=== PATIENT | female | born 1995 | race Caucasian/White ===

== ENCOUNTER 2022-01-27 15:31 | Inpatient (IN) | payer BC, SELFPAY ==
[2022-01-27] VITALS (73 sets, daily range): BP systolic 102–141; BP diastolic 59–98; PULSE 56–104; TEMP 36.2; O2SAT 97–100; BMI 34.6
[2022-01-27 16:22] LABS: Basophils Percent Auto 0.3 % (0.2-1.2); Eosinophils Absolute Auto 0.1 K/mm3 (0-0.3); Eosinophils Percent Auto 0.7 % (0-4.4); Hematocrit 34.7 % (37.0-47.0); Hemoglobin 10.9 g/dL (12.0-15.0); Immature Granulocyte Absolute 0.08 K/mm3 (0.00-0.031); Immature Granulocyte Percent A 0.8 % (0-0.5); Lymphocytes Absolute Auto 1.13 K/mm3 (0.9-3.2); Lymphocytes Percent Auto 10.7 % (18.3-44.2); Mean Corpuscular HGB Conc 31.4 g/dl (32-36); Mean Corpuscular Hemoglobin 26.7 pg (26-34); Monocytes Absolute Auto 0.6 K/mm3 (0.1-0.6); Monocytes Percent Auto 5.6 % (2.6-8.5); Neutrophils Absolute Auto 8.6 K/mm3 (1.3-6.7); Neutrophils Percent Auto 81.9 % (45.5-73.1); Platelet Count Result 260 k/mm3 (150-375); Red Blood Count 4.08 M/mm3 (4.2-5.4); Red Cell Distribution Width 13.7 % (11.5-14.5); White Blood Count 10.5 K/mm3 (4.5-10.0)
[2022-01-27 16:32] LABS: Alanine Aminotransferase 12 U/L (6-35); Albumin Level 3.5 g/dL (3.5-5.1); Alkaline Phosphatase 194 U/L (38-126); Anion Gap 9 mmol/L (8-16); Aspartate Amino Transferase 20 U/L (14-36); Bilirubin,Total 0.3 mg/dL (0.2-1.3); Blood Urea Nitrogen 8 mg/dL (7-17); Calcium 9.2 mg/dL (8.4-10.2); Carbon Dioxide 20 mmol/L (22-30); Chloride 102 mmol/L (98-107); Estimated Glomerular Filt Rate > 60; Glucose 119 mg/dL (65-110); Potassium 3.5 mmol/L (3.4-5.0); Sodium 131 mmol/L (137-145); Uric Acid 4.3 mg/dL (2.5-7.5)
[2022-01-27] MEDS: LACTATED RINGERS 1,000 ML 125 ML IV CONT ×3 (16:42→21:44)
[2022-01-27] MEDS: OXYTOCIN 30 UNITS/NS 500 ML 30 UNITS/500 ML BAG IV CONT (16:43)
--- NOTE | 2022-01-27 16:45 | LDADM ---
This patient, Katarzyna Valencia, was admitted to Labor/Delivery/Recovery 108 on 01/27/22 at 15:31. Plans for labor, pain management and were discussed with patient. Patient/family oriented to hospital policies and general routines including ID bracelet, bed and alarms, visiting hours, pain management, procedures, bathroom and other care routines, personal items, smoking policy, room service/diet and guest tray routines, infant security routines, and visiting hours. Patient/Family are encouraged to report perceived risks to care and to ask questions if they do not understand what they are told or what they should do. See OBIX for further documentation.
--- NOTE | 2022-01-27 16:46 | WPDANESEPP ---
Anes - Eval Pre Procedure Procedure: labor epidural Date/Time: 01/27/22 16:46 Surgeon: elio Pre Op Diagnosis: iol Patient Data Age: 26 Gender: F Height: Weight: Allergies Allergy/AdvReac Type Severity Reaction Status Date / Time No Known Allergies Allergy Verified 01/27/22 11:39 Home Medications Medication Instructions Recorded Confirmed Type prenat.vits,jaye,vde-qjrx-iottm 1 tablet PO DAILY 07/08/21 History Laboratory Tests 01/27/22 01/27/22 01/27/22 16:16 16:16 16:16 WBC 10.5 K/mm3 H K/mm3 (4.5-10.0) RBC 4.08 M/mm3 L M/mm3 (4.2-5.4) Hgb 10.9 g/dL L g/dL (12.0-15.0) Hct 34.7 % L % (37.0-47.0) MCV 85.0 fl fl (80-100) MCH 26.7 pg pg (26-34) MCHC 31.4 g/dl L g/dl (32-36) RDW 13.7 % % (11.5-14.5) Plt Count 260 k/mm3 k/mm3 (150-375) MPV 10.0 fl fl (7.4-10.4) Immature Gran % (Auto) 0.8 % H % (0-0.5) Neut % (Auto) 81.9 % H % (45.5-73.1) Lymph % (Auto) 10.7 % L % (18.3-44.2) [place] % (Auto) 5.6 % % (2.6-8.5) Eos % (Auto) 0.7 % % (0-4.4) Baso % (Auto) 0.3 % % (0.2-1.2) Lymph # (Auto) 1.13 K/mm3 K/mm3 (0.9-3.2) [place] # (Auto) 0.6 K/mm3 K/mm3 (0.1-0.6) Eos # (Auto) 0.1 K/mm3 K/mm3 (0-0.3) Baso # (Auto) 0.0 K/mm3 K/mm3 (0.0-0.1) Abs Immat Gran (auto) 0.08 K/mm3 H K/mm3 (0.00-0.031) Absolute Neuts (auto) 8.6 K/mm3 H K/mm3 (1.3-6.7) Absolute Nucleated RBC 0.0 K/mm3 K/mm3 (0.0-0.012) Nucleated RBC % 0.0 % % (0.0-0.2) Sodium 131 mmol/L L mmol/L (137-145) Potassium 3.5 mmol/L mmol/L (3.4-5.0) Chloride 102 mmol/L mmol/L (98-107) Carbon Dioxide 20 mmol/L L mmol/L (22-30) Anion Gap 9 mmol/L mmol/L (8-16) BUN 8 mg/dL mg/dL (7-17) Creatinine 0.60 mg/dL L mg/dL (0.7-1.0) Estim Creat Clear Calc Not Reportable Estimated GFR > 60 (59 - ) Glucose 119 mg/dL H mg/dL (65-110) Uric Acid 4.3 mg/dL mg/dL (2.5-7.5) Calcium 9.2 mg/dL mg/dL (8.4-10.2) Total Bilirubin 0.3 mg/dL mg/dL (0.2-1.3) AST 20 U/L U/L (14-36) ALT 12 U/L U/L (6-35) Alkaline Phosphatase 194 U/L H U/L (38-126) Total Protein 7.0 g/dL g/dL (6.3-8.2) Albumin 3.5 g/dL g/dL (3.5-5.1) RPR Pending Patient hx anesthesia problems: none Family hx anesthesia problems: none Results Review: All pre-operative results and documents have been reviewed as part of the pre-operative evaluation. [facility] Past Medical History Medical History Acid reflux Anxiety Headache Migraine TIA (transient ischemic attack) 2014 Surgical History Surgical History [place] teeth removed 2013 Family History Family History Sibling Heart disease Social History Social History Smoking status: Never smoker Exam Day of Procedure 01/27/22 16:46
--- NOTE | 2022-01-27 19:27 | PM.IMHP ---
H&P: HPI History of Present Illness Date/Time: 01/27/22 19:27 Chief Complaint: Patient is a 26yo LMP 04/22/21 currently 40w gestation with DARI 01/27/22 who presented to L&D for induction of labor for elevated blood pressure. Patient is dated by LMP consistent with US on 07/09/21 at 10w gestation. Patient was seen in office for a routine visit where first documented elevated blood pressure was noted. Decision was made to proceed with induction of labor. Patient reports occasional contractions. Denies any vaginal bleeding or leakage of fluid. Reports good movement. Review of Systems Review of Systems: All systems reviewed & are unremarkable except as noted in HPI and below Constitutional: Constitutional: Reports as per HPI and Reports no additional constitutional complaints Eyes: Eyes: Reports as per HPI and Reports no additional eye complaints ENT: Reports system reviewed and no additional complaints, except as documented and Reports as per HPI Cardiovascular: Cardiovascular: Reports as per HPI and Reports no additional cardiovascular complaints Respiratory: Respiratory: Reports as per HPI and Reports no additional respiratory complaints Gastrointestinal: Gastrointestinal: Reports as per HPI and Reports no additional gastrointestinal complaints Genitourinary: Genitourinary: Reports no additional female genitourinary complaints and Reports as per HPI Musculoskeletal: Musculoskeletal: Reports no additional musculoskeletal complaints and Reports as per HPI Integumentary/Breasts: Skin/Breast: Reports system reviewed and no additional complaints, except as docu and Reports as per HPI Neurologic: Reports system reviewed and no additional complaints, except as documented and Reports as per HPI Psychiatric: Psychiatric: Reports no additional psychiatric complaints and Reports as per HPI Endocrine: Endocrine: Reports no additional endocrine complaints and Reports as per HPI Hematologic/Lymphatic: Hematologic/Lymphatic: Reports no additional hematologic/lymphatic complaints and Reports as per HPI Allergic/Immunologic: Allergic/Immunologic: Reports no additional allergic/immunologic complaints and Reports as per HPI PMF Past Medical History Medical History Acid reflux Anxiety Headache Migraine TIA (transient ischemic attack) 2014 Surgical History Surgical History [place] teeth removed 2014 Family History Family History Sibling Heart disease Social History Social History Smoking status: Never smoker Substance use: never Spiritual care concerns: No Meds Home Medications and Allergies Home Medications Medication Instructions Recorded Confirmed Type prenat.vits,jaye,rlk-qmve-dugoq 1 tablet PO DAILY 07/08/21 01/27/22 History Allergies Allergy/AdvReac Type Severity Reaction Status Date / Time No Known Allergies Allergy Verified 01/27/22 11:39 Vital Signs Vital Signs - 24 hr 01/27/22 16:44 01/27/22 16:45 01/27/22 17:00 Pulse Rate 74 80 Blood Pressure 120/78 110/73 Oxygen Delivery Room Air 01/27/22 17:30 01/27/22 18:01 01/27/22 18:30 Pulse Rate 75 66 64 Blood Pressure 129/88 122/84 126/75 Oxygen Delivery 01/27/22 19:00 Pulse Rate 71 Blood Pressure 138/72 Oxygen Delivery Exam Const: General: cooperative, healthy appearing, comfortable and no acute distress HENMT: Head: normal to inspection Ears: hearing grossly normal bilaterally Eyes: General: appearance normal, both eyes and all related structures Neck: Neck: normal visual inspection Resp: Effort & Inspection: normal respiratory effort Auscultation: clear to auscultation bilaterally Cardio: Rate: regular rate Rhythm: regular rhythm GI: Inspection: non-distended
--- NOTE | 2022-01-27 19:41 | WPDHPUPDATE1 ---
History and Physical Update Update Date/Time: 01/27/22 19:41 History and Physical has been reviewed, including an updated exam of the patient. There are NO changes in the patient's condition. Risks, benefits, and alternatives have been discussed and questions answered. Patient agrees to proceed with procedure.
[2022-01-28] VITALS (262 sets, daily range): BP systolic 96–146; BP diastolic 48–100; PULSE 53–132; RESP 11–20; TEMP 36.1–37.1; O2SAT 94–100
--- NOTE | 2022-01-28 09:11 | P.PNOB_ITS ---
Pain Control Date/time seen: 01/28/22 09:11 Comments: Patient doing well. Comfortable s/p epidural. SVE 8.5/90/-1 (per RN). EFM currently category I, however, periods of category II noted previously. [place] shows contractions q3 mins. Continuous EFM and toco. Continue pitocin.
[2022-01-28] MEDS: LACTATED RINGERS 1,000 ML 125 ML IV CONT (09:56)
--- NOTE | 2022-01-28 11:06 | PM.OBPNLAB ---
Pain Control Date/time seen: 01/28/22 11:06 Comments: Patient doing well. SVE /-2 (my exam). Minimal caput also noted. Review of chart shows pt was approx. 7cm dilated around midnight. Therefore, no significant cervical change in several hours. EFM category I at this time. [place] shows contractions q3-4 mins. Will continue induction with pitocin for an additional two hours and reevaluate. If no further progress, will likely recommend section. Patient and made aware of situation and agree with plan.
[2022-01-28 11:29] LABS: Rapid Plasma Reagin Non-Reactive (NonReactive)
--- NOTE | 2022-01-28 13:18 | PM.OBPNLAB ---
Pain Control Date/time seen: 01/28/22 13:18 Comments: Cervix reevaluated. SVE essentially unchanged. Few occ decelerations noted on EFM, however, adequate recovery. Situation discussed with patient. Recommendation made to proceed with section for arrest of dilation. Risks and benefits of section discussed with patient. Patient implied an understanding and agrees with plan. Pitocin discontinued. Anesthesia notified. All questions and concerns addressed.
[2022-01-28] MEDS: ceFAZolin 2 GM/D5W 50 ML 2 GM/50 ML BAG IVPB (13:27)
[2022-01-28] MEDS: KETOROLAC 30 MG/ML VIAL (*BKC) 15 MG IV PUSH (14:50)
--- NOTE | 2022-01-28 15:04 | W.PM.PROC2 ---
Procedure Note - Detailed Date of Procedure 01/28/22 Pre-op Diagnosis IUP at 40w gestation Arrest of dilation Post-op Diagnosis Same Procedure Performed Primary low transverse section via Pfannenstiel Surgeon Rain Cline MD Supervisor [place] Anesthesia Epidural Findings Live female in cephalic presentation, apgars 9 and 9, weighing 7 lbs. 11 oz., nuchal cord x 1, clear amniotic fluid, normal appearing uterus, ovaries, and fallopian tubes bilaterally Description of Procedure The patient was taken to the operating room, where she was transferred to the operating room table. The patient was placed in dorsal supine position with a leftward tilt. She was prepped and draped in the usual sterile fashion. Epidural anesthesia was tested and found to be adequate. A Pfannenstiel skin incision was made with a scalpel and carried through to underlying layer of fascia with the Bovie. The fascia was incised in the midline and the incision was extended laterally with the use of forceps and Claros scissors. The inferior aspect of the fascial incision was grasped with David clamps, elevated, and the underlying rectus muscle were dissected off with Claros scissors. Attention was then turned to the superior aspect of the fascial incision, which in a similar manner, was grasped with David clamps, elevated, and the underlying rectus muscles were also dissected off with Claros scissors. The rectus muscles were in the midline and the peritoneal cavity was entered bluntly. This incision was extended superiorly and inferiorly with good visualization of the bladder and care was taken to avoid blood vessels. A bladder blade was inserted. The vesicouterine peritoneum was identified and incised sharply with Metzenbaum scissors. This incision was extended laterally with Metzenbaum scissors and a bladder flap was created digitally. The bladder blade was replaced. A low-transverse uterine incision was made with a scalpel. This incision was extended laterally with bandage scissors. Clear amniotic fluid was noted. The infant's head was grasped and gently guided to the level of the uterine incision. The infant's head was delivered easily and atraumatically without difficulty. A nuchal cord x 1 was noted and reduced. The neck, shoulders, and rest of body with delivered easily with gentle fundal pressure. The 's nose and mouth were suctioned with bulb suction. The was crying spontaneously. The cord was clamped and cut and the infant was handed off to awaiting nursing staff. A segment of cord was collected for cord gases. Cord blood was also collected. The placenta was then delivered manually with gentle uterine massage. Uterus was exteriorized and cleared of all clots and debris. The uterine incision was reapproximated with 0 Vicryl in a running, locked fashion. A second imbricating layer using 0 Monocryl performed. An area inferior to incision was oozing. This area was made hemostatic with a few figure of eight sutures using 0 Monocry. Excellent hemostasis was noted. On inspection, the uterus, ovaries, and fallopian tubes appeared to be normal bilaterally. The uterus was replaced into the abdominal cavity. The gutters were cleared of all clots and debris. The uterine incision was inspected again and noted to be hemostatic. Hemaderm was applied across the uterine incision. Interceed was also applied across the uterine incision and anterior surface of the uterus. The peritoneum was reapproximated with 2-0 Monocryl. The fascia was then closed with 0 Vicryl in a running fashion. The subcutaneous layer was irrigated with water. Pinpoint areas of bleeding were made hemostatic with Bovie. The subcutaneous layer was reapproximated with 2-0 plain and the skin was then closed with Insorb subcuticular wilbert. The skin was cleansed and dried. Dermaflex skin adhesive was applied across the incision. A pressure dressing was also applied. The remainder the patient was luis
--- NOTE | 2022-01-28 15:04 | PM.OBPRVD ---
OB - Delivery Note Procedure Delivery date: 01/28/22 Procedure: Procedures Operation Date: 01/28/22 13:30 <No data on this case meets the specified criteria> Events: Gestational Hypertension Intrapartal Events: Arrest of Dilation Induction method: Per Pitocin Protocol Delivery augmentation: Rupture of Membranes Delivery monitor: External FHT and External Uterine Route of delivery: Prior to decision for section, [facility] labor guidelines were considered and discussed with the patient and staff. Decision made to proceed with the section.: Yes Specimen: Yes (cord blood, cord gases) Quantitative Blood Loss (ml): 1,160 Anesthesia type: Epidural Disposition: PACU Complications: No immediate complications [place] Baby Date of : 01/28/22 Time of : 14:06 Weeks of gestation at delivery: 40 (40.1) gender: Female Weight (pounds): 7 Weight (ounces): 11 presentation: vertex Placenta delivery description: Manual Removal Cord Vessel Description: 3 Vessels and Nuchal Cord (x1) score one minute: 9 score five minutes: 9 AMG Delivery Billing Delivery Delivery: Delivery Charge
[2022-01-28] MEDS: OXYTOCIN 30 UNITS/NS 500 ML 30 UNITS/500 ML BAG 125 UNITS IV CONT (17:00)
--- NOTE | 2022-01-28 17:52 | OBPPTRN ---
Patient transferred to post room # 278 via stretcher accompanied by spouse and . PT awake and alert and oriented to room and surroundings. . Support person present for instructions. NO barriers to learning identified at this time. PT received such instructions per one to one discussion, mom baby care guide and demonstrations this shift. Oriented to unit, room, information board, rooming in, admission packet and security measures. Patient verbalizes understanding.
--- NOTE | 2022-01-28 18:35 | PC.NURSE ---
Report given to JENN Rand
[2022-01-28] MEDS: SIMETHICONE 80 MG TAB.CHEW PO (20:55)
[2022-01-28] MEDS: DEXTROSE 5%/0.45% SOD CHL 1,000 ML 125 ML IV CONT (20:56)
[2022-01-28] MEDS: IBUPROFEN 600 MG TABLET PO (23:07)
[2022-01-29 04:00] VITALS: PULSE 109; RESP 18; TEMP 36.6; O2SAT 100
[2022-01-29 06:24] LABS: Basophils Absolute Auto 0.1 K/mm3 (0.0-0.1); Basophils Percent Auto 0.5 % (0.2-1.2); Eosinophils Percent Auto 0.3 % (0-4.4); Hematocrit 23.9 % (37.0-47.0); Hemoglobin 7.6 g/dL (12.0-15.0); Immature Granulocyte Absolute 0.07 K/mm3 (0.00-0.031); Immature Granulocyte Percent A 0.6 % (0-0.5); Lymphocytes Absolute Auto 0.95 K/mm3 (0.9-3.2); Lymphocytes Percent Auto 8.7 % (18.3-44.2); Mean Corpuscular HGB Conc 31.8 g/dl (32-36); Mean Corpuscular Volume 85.1 fl (80-100); Mean Platelet Volume 10.4 fl (7.4-10.4); Monocytes Absolute Auto 0.5 K/mm3 (0.1-0.6); Monocytes Percent Auto 4.2 % (2.6-8.5); Neutrophils Absolute Auto 9.3 K/mm3 (1.3-6.7); Neutrophils Percent Auto 85.7 % (45.5-73.1); Platelet Count Result 196 k/mm3 (150-375); Red Blood Count 2.81 M/mm3 (4.2-5.4); Red Cell Distribution Width 13.9 % (11.5-14.5); White Blood Count 10.9 K/mm3 (4.5-10.0)
[2022-01-29] MEDS: POLYSACCHARIDE IRON COMPLEX 150 MG CAPSULE PO ×2 (07:48→17:33)
[2022-01-29] MEDS: SIMETHICONE 80 MG TAB.CHEW PO ×3 (07:49→20:21)
[2022-01-29] MEDS: DOCUSATE SODIUM 100 MG CAPSULE PO ×2 (07:49→17:33)
[2022-01-29] MEDS: MULTIVIT/MIN/PREN/FOL AC/IRON TABLET 1 TAB PO (07:49)
[2022-01-29] MEDS: IBUPROFEN 600 MG TABLET PO ×3 (07:50→20:21)
[2022-01-29 07:58] VITALS: BP 104/70; PULSE 112; RESP 18; TEMP 36.7; O2SAT 99
[2022-01-29 07:59] VITALS: PULSE 112; RESP 18; O2SAT 99
--- NOTE | 2022-01-29 09:39 | WPDANLDPN2 ---
Anes-Prog Note L&D Date/Time: 01/29/22 09:39 Comfortable throughout: labor and section Neuraxial method: epidural Epidural/Spinal procedure site: clean & non-tender Neuro status: Neuro function grossly intact. Cardiovascular status: normal Respiratory status: normal Airway patency: baseline Mental status: baseline Post-Op hydration status: normal Vital Signs: Last Vital Signs Temp 36.7 C 01/29/22 07:58 Pulse 112 H 01/29/22 07:59 Resp 18 01/29/22 07:59 BP 104/70 01/29/22 07:58 Pulse Ox 99 01/29/22 07:59 O2 Del Method Room Air 01/29/22 07:59 Pain score (VAS): 07/05 I/O: Intake & Output 01/28/22 01/29/22 01/29/22 23:59 07:59 15:59 Intake Total 480 900 400 Output Total 253 1400 1200 Balance 227 -500 -800 Post-procedural complaints: none Patient feedback: Patient satisfied with anesthetic care.
--- NOTE | 2022-01-29 09:40 | WPDANLDNPN2 ---
Anes-Prog Note L&D-Neuraxial Date/Time: 01/29/22 09:40 Neuraxial medications: intrathecal PF morphine Opiod-related complaints: none Patient feedback: Patient satisfied with post-operative pain management.
--- NOTE | 2022-01-29 10:30 | PM.OBPNVD ---
OB - PN: Subj Subjective Date/time seen: 01/29/22 10:30 Patient doing well. Pain well controlled with medication. Denies any headache, chest pain, SOB, N/V. Minimal-moderate lochia. [place] catheter still in place. Has not yet ambulated. No flatus yet. OB - PN: Obj Data Labs CBC & Chem 7: 01/29/22 04:01 01/27/22 16:16 Labs: Laboratory Results - last 24 hr 01/27/22 01/29/22 16:16 04:01 WBC 10.9 H RBC 2.81 L Hgb 7.6 L D Hct 23.9 L MCV 85.1 MCH 27.0 MCHC 31.8 L RDW 13.9 Plt Count 196 MPV 10.4 Immature Gran % (Auto) 0.6 H Neut % (Auto) 85.7 H Lymph % (Auto) 8.7 L [place] % (Auto) 4.2 Eos % (Auto) 0.3 Baso % (Auto) 0.5 Lymph # (Auto) 0.95 [place] # (Auto) 0.5 Eos # (Auto) 0.0 Baso # (Auto) 0.1 Abs Immat Gran (auto) 0.07 H Absolute Neuts (auto) 9.3 H Absolute Nucleated RBC 0.0 Nucleated RBC % 0.0 RPR Non-reactive OB - PN A/P Assessment and Plan (1) delivery delivered: Code(s): O82 - Encounter for delivery without indication Status: Acute Assessment and Plan: POD#1 continue routine postoperative care dc [place] this AM encourage ambulation and use of IS Time Spent With Patient Time: Total time spent is greater than 50% in coordination of care (as documented) at patient's floor/unit and/or counseling patient: Exam Const: General: cooperative, healthy appearing, comfortable and no acute distress GI: Inspection: non-distended GI Palp: Yes Soft to palpation and Yes Tenderness to palpation present (GI) (appropriately) Other: fundus firm just below umbilicus Extrem: Right lower extremity: edema (trace) Left lower extremity: edema (trace)
[2022-01-29 12:40] VITALS: BP 101/68; PULSE 99; RESP 18; TEMP 36.1; O2SAT 97
[2022-01-29 20:15] VITALS: BP 112/69; PULSE 102; RESP 18; TEMP 36.3; O2SAT 98
[2022-01-30] MEDS: SIMETHICONE 80 MG TAB.CHEW PO (03:10)
[2022-01-30] MEDS: IBUPROFEN 600 MG TABLET PO ×2 (03:10→10:34)
[2022-01-30] MEDS: ACETAMINOPHEN 325 MG TABLET 650 MG PO ×2 (06:53→13:45)
[2022-01-30 07:25] VITALS: BP 103/66; PULSE 100; RESP 18; TEMP 36.3; O2SAT 100
[2022-01-30 08:00] VITALS: PULSE 100; RESP 18; O2SAT 100
--- NOTE | 2022-01-30 10:12 | PM.OBPNVD ---
OB - PN: Subj Subjective Date/time seen: 01/30/22 10:12 Patient doing well. Pain well controlled medication. Denies any headache, chest pain, shortness of breath, nausea, or vomiting. Tolerating p.o. diet. Minimal lochia. Ambulating without difficulty. Voiding well. Passing flatus. OB - PN: Obj Data Labs CBC & Chem 7: 01/29/22 04:01 01/27/22 16:16 OB - PN A/P Assessment and Plan (1) delivery delivered: Code(s): O82 - Encounter for delivery without indication Status: Acute Assessment and Plan: POD#2 doing well continue routine postoperative care dc home today in stable condition emergency precautions reviewed f/u in office in 2 weeks for postoperative visit pt not taking narcotics, so no Rx sent to pharmacy Time Spent With Patient Time: Total time spent is greater than 50% in coordination of care (as documented) at patient's floor/unit and/or counseling patient: Exam Const: General: cooperative, healthy appearing, comfortable and no acute distress GI: Inspection: non-distended GI Palp: Yes Soft to palpation and No Tenderness to palpation present (GI) Other: fundus firm below umbilicus inc c/d/i Extrem: Right lower extremity: edema (trace) Left lower extremity: edema (trace) Other: no calf tenderness
--- NOTE | 2022-01-30 10:25 | PM.OBDSVD ---
DS: Admitting Diagnosis Discharge Date 01/30/22 Admitting Diagnosis IUP at 40w gestation Induction of labor OB - DS: Summary OB Procedures : None OB Procedures Intrapartum: OB Procedures: : None Peripartum Data Procedures: Procedures Operation Date: 01/28/22 13:30 Actual Procedure Side Surgeon p Section Bilateral Rain Cline MD Time Spent with Patient Time attestation: Total time spent providing and/or coordinating discharge services: Discharge Plan Discharge Attending physician on discharge: Rain Cline Discharging Clinician: Rain Cline Anticipated Discharge Date/Time: 01/30/22 10:25 Patient Disposition: Home, Self-Care Activity: as tolerated and pelvic rest Diet: regular Discharge Instructions: Call office ([phone]) to schedule the following appointments: 1. Postoperative/wound check in 2 weeks. 2. visit in 4-6 weeks. You may take Ibuprofen 600mg every 6 hours as needed for pain. You may also alternate with Tylenol 1000mg (two extra strength tablets) every 6 hours as well. No driving for at least two weeks. You also may not drive while taking narcotics. Pain medication may make you constipated. It may be helpful to take an [id number] stool softener, such as Colace and/or Senokot, along with the pain medication to help lessen constipation. Call office or go to ED for pain not controlled with medication, headache, chest pain, shortness of breath, fever, chills, persistent nausea or vomiting, severe abdominal pain, heavy vaginal bleeding >2 pads/hour, foul vaginal discharge or odor, any redness near incision, severe pain, pus or drainage from incision site, or problems with your breasts. Patient Instructions: Antibiotic Form Stand Alone Forms: General Discharge Information Follow-up/Referrals: Rain Cline MD [Physician] - Discharge Medications: Continued prenat.vits,jaye,lut-vupw-nbnro Tablet 1 tablet PO DAILY Date of admission: 01/27/22 15:31 Primary Care Provider: PHYSICIAN,[employer] PA[employer]ABLE BOOKKEEPER Admitting Provider: Rain Cline Attending physician on admission: Rain Cline Condition: Stable
[2022-01-30] MEDS: DOCUSATE SODIUM 100 MG CAPSULE PO (10:33)
[2022-01-30] MEDS: POLYSACCHARIDE IRON COMPLEX 150 MG CAPSULE PO (10:33)
[2022-01-30] MEDS: MULTIVIT/MIN/PREN/FOL AC/IRON TABLET 1 TAB PO (10:34)
--- NOTE | 2022-01-30 13:36 | PC.NURSE ---
Patient viewed the discharge video Mother & Baby Care, The First Two Weeks . Patient was given the opportunity and encouraged to ask questions. Patient verbalized understanding of information shared and has been given the mother/baby guide for home reference.
[2022-01-31 08:55] VITALS: BP 118/73; PULSE 97; RESP 20; TEMP 36.8
--- NOTE | 2022-01-31 15:09 | PC.NURSE ---
0915 01/31/22 Pt seen at f/u visit today as scheduled. LC asked to speak to pt and FOB about /pumping concerns. Mother states her original plan was to breast feed. She reports in the hospital she had latch issues and was doing attempts, but also bottle feeding . Today, she appears emotional, is uncertain about putting to breast, but states she is willing to pump to be able to give breast milk. Pt states she has a Baby Buddha pump, and it has capability to do stimulation and expression phases. Pt instructed to pump at least 8 times a day, 15 minutes, doing pump cycling, stimulation - expression 2 times each over 13-15 minutes, then hand expressing for 2 minutes. Instructed on importance of proper flange fit, and comfortable pumping at moderate settings. Suggested consistent, faithful pumping and contacting hospital office for f/u as her milk production increases. referred pt to her Mother-baby Guide for home reference for questions, and encouraged her to seek more out-pt support. She agreed and voiced understanding
== END 2022-01-30 15:28 | disposition home or self-care (01) | DRG 788 ==
LOC: ANHLDR 01-28 08:45 → ANHOB2 01-28 18:14
PROVIDERS: Admitting Provider Student in an Organized Health Care Education/Training Program; Visit Provider Student in an Organized Health Care Education/Training Program
PROC: 10D00Z1 Extraction of Products of Conception, Low, Open Approach (ICD-10-PCS; CPT 59514; principal; 2022-01-28 13:30)
DX: O62.0 Primary inadequate contractions (principal); O13.4 Gestational [pregnancy-induced] hypertension without significant proteinuria, complicating childbirth; O76 Abnormality in fetal heart rate and rhythm complicating labor and delivery; O69.81X0 Labor and delivery complicated by cord around neck, without compression, not applicable or unspecified; O99.02 Anemia complicating childbirth; Z3A.40 40 weeks gestation of pregnancy; Z37.0 Single live birth; Z86.73 Personal history of transient ischemic attack (TIA), and cerebral infarction without residual deficits
CPT/HCPCS: 36415; 80053; 84550; 85025; 86592; 86850; 86900; 86901; A9270; J0690; J1100; J1885; J2175; J2274; J2405; J2590; J2795; J7120

== ENCOUNTER 2024-04-28 10:52 | Emergency (ER) | payer BC, SELFPAY ==
--- NOTE | ~2024-04-28 | XR_ITS ---
EXAMINATION: XR knee RT min 4V DATE: 04/28/2024 11:39 INDICATION: Anterior and lateral right knee pain TECHNIQUE: Weight bearing anteroposterior and Gardner, sunrise, and flexed lateral views of the rig ht knee were obtained COMPARISON: None. FINDINGS: Alignment is normal. No fracture. Joint spaces are normal. Small to moderate-sized right knee joint effusion. Soft tissues are otherwise unremarkable. IMPRESSION: 1. Small to moderate-sized right knee joint effusion. No osseous abnormality. Reviewed, dictated and finalized at location A. [employer] [employer]
--- NOTE | 2024-04-28 11:07 | ED.LOWEXIN ---
HPI - Extremity Injury (Lower) General Chief Complaint: Extremity Injury, Lower Stated Complaint: RT Knee Pain Time Seen by Provider: 04/28/24 11:06 Source: patient Mode of arrival: ambulatory Limitations: no limitations History of Present Illness HPI Narrative: Katarzyna is a 28-year-old female patient presenting to the clinic today with complaints right knee pain since April 11. She reports that she was laying in bed and stretched her right knee and felt a pop with pain. Reports 2 days afterwards it popped again and felt as though it went back into place. She is reporting pain with full extension of the knee as well as some mild swelling. Also feels as though her knee is catching when she is walking. Saw her primary care doctor and they gave her some knee exercises to complete the did not do an x-ray at that time. States that the primary care provider was concerned about a possible meniscus tear. Related Data Home Medications Medication Instructions Recorded Confirmed rizatriptan 10 mg tablet 10 mg PO PRN PRN Migraine Headache 04/28/24 04/28/24 venlafaxine 37.5 mg 37.5 mg PO DAILY 04/28/24 04/28/24 capsule,extended release 24 hr Allergies Allergy/AdvReac Type Severity Reaction Status Date / Time hydrocodone AdvReac Intermediate Nausea and Verified 04/28/24 11:20 Vomiting Review of Systems Review of Systems: Pertinent positives per HPI. Patient denies any fever, chills, rash, headache, visual changes, dizziness, cough, runny nose, sore throat, shortness of breath, chest pain, palpitations, nausea, vomiting, diarrhea, constipation, abdominal pain, or any urinary issues. [facility] Past Medical History Medical History Acid reflux Anxiety delivery delivered Headache Migraine TIA (transient ischemic attack) 2014 Surgical History Surgical History Previous section [place] teeth removed 2013 Family History Family History Sibling Heart disease Social History Social History Smoking status: Never smoker Substance use: never Do You Feel Safe in your Home?: Yes Lack of Transportation: No Lack of Food: Never True Current Housing: I Have Housing Concerned About Future Housing: No Difficulty Paying Gas/Electric Bills: No Difficulty Paying for Meds: No Currently Unemployed: No Education: Associate Degree Difficulty w/ Childcare or Family Care: No Spiritual care concerns: No Comments At the time of my signature, I reviewed and agree with the nursing past medical, surgical, social, and family history. There is no relevant family history pertinent to the patient complaint. Exam Narrative: General: Well-developed, well nourished, in no apparent distress Head: Normocephalic, atraumatic. Cardio: Regular rate and rhythm, s1 and s2 normal, no murmur appreciated. Resp: Clear to auscultation bilaterally, no rhonchi, rales, wheezing or rubs. Musculoskeletal: No deformity, mild swelling to the right knee when compared to the left, non-tender to palpation, pain with extension of the right knee, no crepitus palpable with range of motion, pain worse with bearing weight and ambulation, negative anterior and posterior drawer testing, valgus and varus testing, and negative Jann test, muscle strength strong and equal, peripheral pulse strong, no edema, no cyanosis, normal gait and station Course Course Emergency Course: Portions of this record may have been created with voice recognition software. Level of Care: Express Care Visit Vital Signs Vital signs: Vital signs reviewed MDM - Extremity Injury (Lower) MDM Narrative Medical decision making narrative: At the time of visit patient is resting comfortably on the exam table. Patient appears to be nontoxic. Diagnostics: X-ray of the right knee shows small to moderate sized knee effusion. No fracture or malalignment. Plan: I suspect patient has knee joint effusion, acute knee pain. Cannot rule out ligament injury or meniscus tear at this time. Recommend follow-up with her primary care doctor to get a MRI. Recommend wearing a hinged knee brace. Supportive measures were discussed with the patient and they voiced understanding discharge instructions and agrees to treatment plan. Return precautions reviewed Differential Diagnosis Differential diagnosis: Likely ankle sprain and strain, acute internal derangement of knee, fracture of femur, fracture of hip, puncture wound of foot, fracture of toe and ankle fracture Imaging Data Radiologist's impression: ITS Impressions Knee X-Ray 04/28/24 11:50 IMPRESSION: 1. Small to moderate-sized right knee joint effusion. No osseous abnormality. Discharge Plan Discharge Clinical Impression: Swelling of joint of right knee Acute knee pain Qualifiers: Laterality: right Qualified Code(s): M25.561 - Pain in right knee Patient Disposition: Home, Self-Care Condition: Stable Instructions: Antibiotic Form, Swollen Knee Joint (ED), Knee Pain (ED) Additional Instructions: X-rays negative for any sign of fracture or malalignment. Shows small to moderate size right knee joint effusion. Rest, ice, elevate, and wear wes wrap as directed Wear hinged knee brace when up ambulating Tylenol/motrin for pain as discussed. Gradually bear weight No running or sports until healed. Follow up with your PCP if symptoms persist more than 1 week. Prescriptions: No Action venlafaxine 37.5 mg capsule,extended release 24hr 37.5 mg PO DAILY rizatriptan 10 mg tablet 10 mg PO PRN PRN (Reason: Migraine Headache) Follow-up/Referrals: UNKNOWN,DOCTOR [Non-Staff] - Time of Disposition: 12:01 Quality NIHSS Nursing Documentation ED NIHSS nursing documentation: reviewed/agree
[2024-04-28 11:18] VITALS: BP 135/93; PULSE 87; RESP 16; TEMP 36.6; O2SAT 98
== END 2024-04-28 12:05 | disposition home or self-care (01) ==
PROVIDERS: Emergency Provider Nurse Practitioner Family; PCP Student in an Organized Health Care Education/Training Program
DX: M25.461 Effusion, right knee (principal); M25.561 Pain in right knee; K21.9 Gastro-esophageal reflux disease without esophagitis; F41.9 Anxiety disorder, unspecified; Z86.73 Personal history of transient ischemic attack (TIA), and cerebral infarction without residual deficits
CPT/HCPCS: 73564; 99213; G0463